=== PATIENT | male | born 1960 | race Caucasian/White ===

== ENCOUNTER 2017-09-30 10:06 | Emergency (ER) | payer OTHER ==
[~2017-09-30] VITALS: Ht 177.8 cm; Wt 97.0 kg
[2017-09-30 10:58] LABS: EOSINOPHIL (%) 1.4 % (0-5); EOSINOPHIL COUNT 0.1 K/uL (0-0.3); HEMATOCRIT 37.2 % (38.0-50.0); IMMATURE GRANULOCYTE (%) 1.9 % (0.0-0.7); IMMATURE GRANULOCYTE COUNT 0.1 K/uL; INSTRUMENT ABS NEUTROPHIL CT 5.4 K/uL; MCH 29.1 PG (29.0-34.0); MCHC 32.8 G/DL (30.0-36.0); MCV 88.8 FL (86-99); MEAN PLAT.VOLUME 9.4 uM^3 (9.0-12.4); MONOCYTE (%) 8.9 % (3-12); MONOCYTE COUNT 0.7 K/uL (0-0.8); NEUTROPHIL (%) 73.2 % (45-76); NEUTROPHIL COUNT 5.4 K/uL (1.8-6.4); PLATELET COUNT 94 K/uL (156-360); RBC DIS.WIDTH-CV 17.8 % (11.8-14.6); RBC DIS.WIDTH-SD 57.7 % (39-53); RED BLOOD COUNT 4.19 M/uL (4.00-5.50); WHITE BLOOD COUNT 7.3 K/uL (4.1-10.2)
[2017-09-30 11:11] LABS: CHLORIDE 103 mEq/L (99-109); POTASSIUM 4.2 mEq/L (3.7-5.4); SODIUM 138 mEq/L (136-147)
[2017-09-30 11:13] LABS: GLUCOSE 103 mg/dL (70-99)
[2017-09-30 11:14] LABS: ANION GAP 8 MEQ/L (2-14)
[2017-09-30 11:15] LABS: TOTAL BILIRUBIN 0.7 mg/dL (0.0-1.0)
[2017-09-30 11:16] LABS: ALKALINE PHOSPHATASE 104 IU/L (3-129)
[2017-09-30 11:18] LABS: GFR ESTIMATE (CALCULATED) > 59 mL/min/; UREA NITROGEN (BUN) 23 mg/dL (9-23)
[2017-09-30] MEDS ORDERED: KEPPRA500 MG PO (17:15)
[2017-09-30] MEDS ORDERED: DECADRON1 MG PO (17:15)
[2017-09-30 18:30] VITALS: BP 110/76
== END 2017-09-30 18:32 | disposition home or self-care (01) ==
LOC: EME 10:06 → EDOF 16:06
PROVIDERS: Emergency Medicine
DX: R56.9 Unspecified convulsions (principal); C71.0 Malignant neoplasm of cerebrum, except lobes and ventricles; Z87.820 Personal history of traumatic brain injury
CPT/HCPCS: 70450; 70553; 80053; 85025; 93005; 99281; 99285; J1100; J1953; J2060; J7050